=== PATIENT | male | born 1975 | race Caucasian/White ===

== ENCOUNTER 2020-11-10 06:15 | Emergency (ER) | payer OTHER ==
[~2020-11-10 06:15] MED LIST: NORTRIPTYLINE H50 MG PO; PREVACID30 M1 PO; PROTONIX 40MG T40 MG PO; XANAX0.5 MG PO
[2020-11-10 06:59] LABS: BASOPHIL 0.7 % (0-2); EOSINOPHIL 2.4 % (0-5); HCT 43.8 % (42.0-52.0); HGB 15.1 g/dl (13.2-18.0); LYMPHOCYTE 27.8 % (15-48); MCH 32.5 pg (25.0-31.0); MCHC 34.5 g/dL (32.0-36.0); MCV 94.2 fL (78.0-100.0); MONOCYTE 6.6 % (0-12); NEUTROPHIL 62.3 % (41-80); NRBC 0; PLT 265 K/uL (150-400); RBC 4.65 M/uL (4.70-6.00); RDW 12.4 % (11.5-14.0); WBC 8.8 K/uL (4.0-10.5)
[2020-11-10 07:48] LABS: ALBUMIN 4.3 g/dL (3.4-5.0); ALKALINE PHOSHATASE 105 U/L (46-116); ALT 34 U/L (16-63); AST 25 U/L (15-37); BILIRUBIN - TOTAL 0.3 mg/dL (0.2-1.0); BUN 12 mg/dL (7-18); BUN/CREAT RATIO (CALC) 13.2 RATIO; CHLORIDE 102 mmol/L (98-107); CO2 (BICARBONATE) 22 mmol/L (21-32); CREATININE 0.91 mg/dL (0.67-1.17); GLOBULIN (CALCULATION) 3.8 g/dL; GLUCOSE 84 mg/dL (74-106); POTASSIUM 3.8 mmol/L (3.5-5.1); TOTAL PROTEIN 8.1 g/dL (6.4-8.2)
[2020-11-10 07:49] LABS: ACETAMINOPHEN (TYLENOL) < 2.0 ug/mL (10.0-30.0)
[2020-11-10 09:16] LABS: BILIRUBIN NEGATIVE (NEGATIVE); BLOOD NEGATIVE Ery/uL (NEGATIVE); CLARITY CLEAR (CLEAR); COLOR YELLOW (YELLOW); GLUCOSE (U) NORMAL (NORMAL); LEUKOCYTES NEGATIVE Leu/uL (NEGATIVE); NITRITE NEGATIVE (NEGATIVE); PROTEIN NEGATIVE (NEGATIVE); SPECIFIC GRAVITY <=1.005 (1.001-1.030); UROBILINOGEN 0.2 mg/dL (0.2-1.0); pH 5.5 (5.0-9.0)
[2020-11-10 09:19] LABS: ECSTASY (MDMA) NEGATIVE (NEGATIVE); MARIJUANA (THC) NEGATIVE (NEGATIVE); METHADONE NEGATIVE (NEGATIVE); OPIATES NEGATIVE (NEGATIVE)
[2020-11-10 09:20] LABS: AMPHETAMINES NEGATIVE (NEGATIVE); BARBITURATES NEGATIVE (NEGATIVE); OXYCODONE NEGATIVE (NEGATIVE)
== END 2020-11-11 09:00 | disposition other institution (70) ==
LOC: FER 06:15
PROVIDERS: Emergency Medicine
DX: R45.851 Suicidal ideations (principal); F10.10 Alcohol abuse, uncomplicated; Z20.822 Contact with and (suspected) exposure to COVID-19; F17.200 Nicotine dependence, unspecified, uncomplicated; Z91.010 Allergy to peanuts; Z91.018 Allergy to other foods
CPT/HCPCS: 36415; 80053; 80305; 81003; 85025; 99285; G0480; U0002

== ENCOUNTER 2020-11-13 05:20 | Emergency (ER) | payer OTHER ==
[2020-11-13 06:06] LABS: BASOPHIL 0.8 % (0-2); HCT 43.6 % (42.0-52.0); LYMPHOCYTE 25.5 % (15-48); MCH 32.4 pg (25.0-31.0); MCHC 34.4 g/dL (32.0-36.0); MCV 94.2 fL (78.0-100.0); MONOCYTE 7.5 % (0-12); MPV 9.2 fL (6.0-9.5); NRBC 0; PLT 262 K/uL (150-400); RBC 4.63 M/uL (4.70-6.00); RDW 12.4 % (11.5-14.0); WBC 8.8 K/uL (4.0-10.5)
[2020-11-13 07:03] LABS: ALBUMIN 4.4 g/dL (3.4-5.0); ALKALINE PHOSHATASE 101 U/L (46-116); ALT 55 U/L (16-63); AST 42 U/L (15-37); BILIRUBIN - TOTAL 0.3 mg/dL (0.2-1.0); BUN 10 mg/dL (7-18); BUN/CREAT RATIO (CALC) 12.5 RATIO; CHLORIDE 101 mmol/L (98-107); CO2 (BICARBONATE) 26 mmol/L (21-32); GLUCOSE 89 mg/dL (74-106); LIPASE 192 U/L (73-393); POTASSIUM 4.6 mmol/L (3.5-5.1); TOTAL PROTEIN 8.4 g/dL (6.4-8.2)
[2020-11-13 07:04] LABS: BILIRUBIN NEGATIVE (NEGATIVE); BLOOD NEGATIVE Ery/uL (NEGATIVE); CLARITY CLEAR (CLEAR); COLOR YELLOW (YELLOW); GLUCOSE (U) NORMAL (NORMAL); LEUKOCYTES NEGATIVE Leu/uL (NEGATIVE); NITRITE NEGATIVE (NEGATIVE); PROTEIN NEGATIVE (NEGATIVE); SPECIFIC GRAVITY <=1.005 (1.001-1.030); UROBILINOGEN 0.2 mg/dL (0.2-1.0)
[2020-11-13 07:06] LABS: AMPHETAMINES NEGATIVE (NEGATIVE); BARBITURATES NEGATIVE (NEGATIVE); ECSTASY (MDMA) NEGATIVE (NEGATIVE); MARIJUANA (THC) NEGATIVE (NEGATIVE); METHADONE NEGATIVE (NEGATIVE); OPIATES NEGATIVE (NEGATIVE); OXYCODONE NEGATIVE (NEGATIVE)
[2020-11-13 07:24] LABS: ACETAMINOPHEN (TYLENOL) < 2.0 ug/mL (10.0-30.0)
== END 2020-11-13 11:32 ==
LOC: FER 05:20
PROVIDERS: Emergency Medicine Emergency Medical Services
DX: R45.851 Suicidal ideations (principal); F10.229 Alcohol dependence with intoxication, unspecified; F32.9 Major depressive disorder, single episode, unspecified; F41.9 Anxiety disorder, unspecified; F17.210 Nicotine dependence, cigarettes, uncomplicated; Z20.822 Contact with and (suspected) exposure to COVID-19; Z87.19 Personal history of other diseases of the digestive system; Z79.899 Other long term (current) drug therapy; Z91.010 Allergy to peanuts; Y90.6 Blood alcohol level of 120-199 mg/100 ml
CPT/HCPCS: 36415; 80053; 80305; 81003; 83690; 85025; G0480; J7030; U0002